=== PATIENT | female | born 1950 | race Asian ===

== ENCOUNTER → 2017-04-13 | Outpatient (CLI) | payer MEDICARE, OTHER ==
[~2017-04-13] MED LIST: ATOR80TA PO; INSLAN SQ; INSNOV SQ; METF500T4 PO; NAPR220T57 PO; VITA100049 PO
== END | disposition home or self-care (01) ==
LOC: RADPV 09:49
PROVIDERS: ATTEND Internal Medicine
DX: M19.011 Primary osteoarthritis, right shoulder (principal); M25.711 Osteophyte, right shoulder; M47.814 Spondylosis without myelopathy or radiculopathy, thoracic region

== ENCOUNTER → 2017-06-23 | Outpatient (CLI) | payer MEDICARE, OTHER | END | disposition home or self-care (01) | LOC: RADMN 09:45 | PROVIDERS: ATTEND Specialist | DX: M50.222 Other cervical disc displacement at C5-C6 level (principal); M25.78 Osteophyte, vertebrae; M48.02 Spinal stenosis, cervical region | CPT/HCPCS: 72141 ==

== ENCOUNTER → 2018-10-17 | Outpatient (CLI) | payer MEDICARE, OTHER ==
[~2018-10-17] MED LIST changes: +METF-444 PO; -METF500T4 PO
== END | disposition home or self-care (01) ==
LOC: RADPV 10:13
PROVIDERS: ATTEND Internal Medicine Pulmonary Disease
DX: R05 Cough (principal); I70.0 Atherosclerosis of aorta

== ENCOUNTER → 2020-11-06 | Outpatient (CLI) | payer MEDICARE, OTHER | END | disposition home or self-care (01) | LOC: RADPV 10:11 | PROVIDERS: ATTEND Internal Medicine Nephrology | DX: N18.30 Chronic kidney disease, stage 3 unspecified (principal) | CPT/HCPCS: 76770 ==

== ENCOUNTER → 2025-02-21 | Outpatient (CLI) | payer MEDICARE, OTHER ==
[~2025-02-21] VITALS: Ht 152.4 cm; Wt 62.2 kg
[~2025-02-21] MED LIST changes: +ACET-3862 PO; -ATOR80TA PO; +DULA3PEN SQ; +EMPA25TA3 PO; -INSNOV SQ; +INSU100I3 SQ; +LEVO125 PO; +LOSA-382 PO; +METF-1211 PO; -METF-444 PO; -NAPR220T57 PO; +RALO60 PO; +ROSU20TA98 PO; -VITA100049 PO
[2025-02-21 10:35] VITALS: BP 115/53; PULSE 76; RESP 12; TEMP 98.1; O2SAT 99
== END | disposition home or self-care (01) ==
LOC: SRCNTR 09:41
PROVIDERS: ATTEND Internal Medicine Cardiovascular Disease
DX: Z45.010 Encounter for checking and testing of cardiac pacemaker pulse generator [battery] (principal)
CPT/HCPCS: G0463